=== PATIENT | male | born 1950 | race Asian ===

== ENCOUNTER 2017-05-21 14:03 | Observation (INO) | payer SELFPAY ==
[2017-05-21] MEDS ORDERED: ASPIRIN 81 MG CHEWABLE TABLETS PO ONE ×2 (14:23→16:11)
[2017-05-21] MEDS ORDERED: ASPIRIN 81 MG CHEWABLE TABLETS ONE ×2 (14:46→16:11)
[2017-05-21 15:13] LABS: HEMATOCRIT 33.1 % (35.4-49); HEMOGLOBIN 10.9 GM/dL (11.7-16.9); MCH 28.6 pg (25.7-33.7); MEAN CELL VOLUME 86.7 fl (80-96); MEAN PLT VOLUME 10.4 fl (7.5-11.1); PLATELET COUNT 82 K/MM3 (134-434); RBC 3.82 M/mm3 (4.00-5.60); RDW 15.9 % (11.9-15.9); WHITE BLOOD COUNT 3.4 K/mm3 (4.0-10.0)
[2017-05-21 15:43] LABS: INR 1.11 (0.82-1.09); PROTHROMBIN TIME (PATIENT) 12.5 SEC (9.98-11.88)
[2017-05-21 15:44] LABS: ALBUMIN 3.9 g/dl (3.4-5.0); ANION GAP 10 (8-16); BILIRUBIN,TOTAL 0.5 mg/dL (0.2-1.0); BLOOD UREA NITROGEN 75 mg/dL (7-18); CALCIUM 8.2 mg/dL (8.5-10.1); CHLORIDE 100 mmol/L (98-107); CO2 27 mmol/L (21-32); CREATININE 3.8 mg/dL (0.7-1.3); GLUCOSE,RANDOM 81 mg/dL (74-106); MAGNESIUM 2.5 mg/dL (1.8-2.4); POTASSIUM 3.7 mmol/L (3.5-5.1); SGOT/AST 52 U/L (15-37); SGPT/ALT 43 U/L (12-78); SODIUM 137 mmol/L (136-145); TOT PROT 8.3 g/dl (6.4-8.2)
[2017-05-21 15:46] LABS: ACTIVATED PTT 38.1 SECONDS (26.9-34.4)
[2017-05-21 15:47] LABS: ALK PHOS 87 U/L (45-117)
[2017-05-21] MEDS ORDERED: ASPIRIN 325 MG TABLET PO ONE (15:52)
--- NOTE | 2017-05-21 15:59 | PDOC ---
History of Present Illness <Jovany Mcfarland - Last Filed: 05/21/17 16:11> - History of Present Illness Initial Comments: 05/21/17 15:53 "The patient is a 67 year old male with a significant PMH of cardiac arrest x2 ( both in 12/2016) 2/2 GA s/p stent placement, CHF (on Lasix), HTN, diabetes, and hyperlipidemia who presents to the emergency department with multiple complaints including chest pain, shortness of breath, cough, and nausea beginning approximately 8 days ago. The patients daughter reports that the patient has had chest pain and shortness of breath intermittently since his MIs. He states it is worsened with exertion. Denies leg swelling. Denies pleuritic chest pain. Denies F/C. Reports significant dyspnea on exertion but no orthopnea. Pt recently arrived to [place]. He was previously in [facility], where he suffered a cardiac arrest x2 in 12/2016 and was admitted to the ICU for 2 weeks. Pt was discharged mid-december, and he has since had some follow up with doctors in [place] but does not follow with anyone here. The patient denies headache and dizziness. Denies fever, chills, diarrhea and constipation. Denies dysuria, frequency, urgency and hematuria. Allergies: NKA Past surgical history: Stent placement. Social history: No reported cigarette, alcohol, or drug use. PCP: From [place]. " <Emerson Jewell - Last Filed: 05/22/17 19:15> - General Chief Complaint: Shortness of Breath Stated Complaint: Shortness of Breath Time Seen by Provider: 05/21/17 14:37 Past History <Jovany Mcfarland - Last Filed: 05/21/17 16:11> - Past Medical History Cardiac Disorders: Yes CVA: No COPD: No Diabetes: Yes (Type II) HTN: Yes Hypercholesterolemia: Yes - Surgical History Cardiac Surgery: Yes - Suicide/Smoking/Psychosocial Hx Smoking History: Never smoked Have you smoked in the past 12 months: No Information on smoking cessation initiated: No Hx Alcohol Use: No Drug/Substance Use Hx: No Substance Use Type: None <Emerson Jewell - Last Filed: 05/22/17 19:15> - Past Medical History Allergies/Adverse Reactions: Allergies Allergy/AdvReac Type Severity Reaction Status Date / Time No Known Allergies Allergy Verified 05/21/17 14:23 Home Medications: Ambulatory Orders Furosemide [Lasix] 60 mg PO DAILY 05/21/17 Hydralazine HCl 50 mg PO TID 05/21/17 Insulin (Novolog 70/30) [Novolog Mix 70/30 Flexpen -] 20 units SQ BID 05/21/17 Aspirin 75 mg PO DAILY 05/22/17 Bisoprolol Fumarate 5 mg PO DAILY 05/22/17 Doxazosin Mesylate [Cardura -] 2 mg PO HS 05/22/17 Isosorbide Mononitrate [Isosorbide Mononitrate ER] 120 mg PO DAILY 05/22/17 Rosuvastatin Calcium [Crestor] 10 mg PO HS 05/22/17 Review of Systems - Review of Systems Comments:: 05/21/17 15:59 "GENERAL/CONSTITUTIONAL: (+) Generalized weakness. No fever or chills. HEAD, EYES, EARS, NOSE AND THROAT: No change in vision. No ear pain or discharge. No sore throat. CARDIOVASCULAR: (+) Chest pain. (+) Shortness of breath. RESPIRATORY: (+) Cough. No wheezing or hemoptysis. GASTROINTESTINAL: (+) nausea. No diarrhea or constipation. GENITOURINARY: No dysuria, frequency, or change in urination. MUSCULOSKELETAL: No joint or muscle swelling or pain. No neck or back pain. SKIN: No rash NEUROLOGIC: No headache, vertigo, loss of consciousness, or change in strength/ sensation. ENDOCRINE: No increased thirst. No abnormal weight change. HEMATOLOGIC/LYMPHATIC: No anemia, easy bleeding, or history of blood clots. ALLERGIC/IMMUNOLOGIC: No hives or skin allergy. " <Emerson Jewell - Last Filed: 05/22/17 19:15> *Physical Exam - Vital Signs Last Vital Signs Temp Pulse Resp BP Pulse Ox 99.1 F 45 L 28 H 106/45 98 05/21/17 14:18 05/21/17 14:41 05/21/17 14:18 05/21/17 14:18 05/21/17 14:41 <Jovany Mcfarland - Last Filed: 05/21/17 16:11> - Vital Signs Last Vital Signs Temp Pulse Resp BP Pulse Ox 99.1 F 45 L 28 H 106/45 98 05/21/17 14:18 05/21/17 14:41 05/21/17 14:18 02/02/18 14:18 05/21/17 14:41 - Physical Exam Comments: 05/21/17 15:59 "GENERAL: Awake, alert, and fully oriented, in no acute distress HEAD: No signs of trauma EYES: PERRLA, EOMI, sclera anicteric, conjunctiva clear ENT: Auricles normal inspection, hearing grossly normal, nares patent, oropharynx clear without exudates. Moist mucosa NECK: Nontender, no stepoffs, Normal ROM, supple, no lymphadenopathy, JVD, or masses LUNGS: Breath sounds equal, clear to auscultation bilaterally. No wheezes, and no crackles HEART: Regular rate and rhythm, normal S1 and S2, no murmurs, rubs or gallops ABDOMEN: Soft, nontender, normoactive bowel sounds. No guarding, no rebound. No masses EXTREMITIES: Normal range of motion, no edema. No clubbing or cyanosis. No cords, erythema, or tenderness NEUROLOGICAL: Cranial nerves II through XII intact. 5/5 strength and sensation in all extremities, Normal speech, normal gait SKIN: Warm, Dry, normal turgor, no rashes or lesions noted. " <Ou,Emerson - Last Filed: 05/22/17 19:15> Heart Score/ECG Review - History History: Highly suspicious - Electrocardiogram EKG: Non specific repolarization disturbance - Age Age: >/= 65 - Risk Factors Risk Factors Heart Score: Yes Hx Hypercholesterolemia, Yes Hx Hypertension, Yes Hx Diabetes Based on the list above the patient has:: >/=3 risk factors or Hx atherosclerotic disease - Troponin Troponin: 1-3x normal limit - Score Heart Score - Total: 8 - ECG Impressions Comment:: 05/21/17 16:03 NSR, no JANNY/STDs, Q waves in V1-V4, no TWIs, intervals wnl <Ou,Emerson - Last Filed: 05/22/17 19:15> ED Treatment Course - LABORATORY CBC & Chemistry Diagram: 05/21/17 15:00 05/21/17 15:00 - ADDITIONAL ORDERS Additional order review: Laboratory Results 05/21/17 05/21/17 05/21/17 15:00 15:00 15:00 PT with INR 12.50 H INR 1.11 PTT (Actin FS) 38.1 H Sodium 137 Potassium 3.7 Chloride 100 Carbon Dioxide 27 Anion Gap 10 BUN 75 H Creatinine 3.8 H Creat Clearance w eGFR 15.92 Random Glucose 81 Calcium 8.2 L Magnesium 2.5 H Total Bilirubin 0.5 AST 52 H ALT 43 Alkaline Phosphatase 87 Creatine Kinase 491 H Creatine Kinase Index 0.2 CK-MB (CK-2) < 1.000 Troponin I 0.27 H B-Natriuretic Peptide 9823.87 H Total Protein 8.3 H Albumin 3.9 05/21/17 15:00 PT with INR Cancelled INR Cancelled PTT (Actin FS) Sodium Potassium Chloride Carbon Dioxide Anion Gap BUN Creatinine Creat Clearance w eGFR Random Glucose Calcium Magnesium Total Bilirubin AST ALT Alkaline Phosphatase Creatine Kinase Creatine Kinase Index CK-MB (CK-2) Troponin I B-Natriuretic Peptide Total Protein Albumin 05/21/17 15:00 RBC 3.82 L MCV 86.7 MCHC 33.0 RDW 15.9 MPV 10.4 Neutrophils % No Result Required. Lymphocytes % No Result Required. - Medications Given in the ED: ED Medications Discontinued Medications Generic Name Dose Route Start Last Admin Trade Name Caliq PRN Reason Stop Dose Admin Aspirin 162 mg 05/21/17 14:23 05/21/17 14:47 Asa - PO 05/21/17 14:24 162 mg ONCE ONE Administration <Jovany Mcfarland - Last Filed: 05/21/17 16:11> - LABORATORY CBC & Chemistry Diagram: 05/22/17 06:45 05/22/17 06:45 - ADDITIONAL ORDERS Additional order review: Laboratory Results 05/21/17 05/21/17 05/21/17 15:00 15:00 15:00 PT with INR 12.50 H INR 1.11 PTT (Actin FS) 38.1 H Sodium 137 Potassium 3.7 Chloride 100 Carbon Dioxide 27 Anion Gap 10 BUN 75 H Creatinine 3.8 H Creat Clearance w eGFR 15.92 Random Glucose 81 Calcium 8.2 L Magnesium 2.5 H Total Bilirubin 0.5 AST 52 H ALT 43 Alkaline Phosphatase 87 Creatine Kinase 491 H Troponin I 0.27 H B-Natriuretic Peptide 9823.87 H Total Protein 8.3 H Albumin 3.9 05/21/17 15:00 PT with INR Cancelled INR Cancelled PTT (Actin FS) Sodium Potassium Chloride Carbon Dioxide Anion Gap BUN Creatinine Creat Clearance w eGFR Random Glucose Calcium Magnesium Total Bilirubin AST ALT Alkaline Phosphatase Creatine Kinase Troponin I B-Natriuretic Peptide Total Protein Albumin 05/21/17 15:00 RBC 3.82 L MCV 86.7 MCHC 33.0 RDW 15.9 MPV 10.4 Neutrophils % No Result Required. Lymphocytes % No Result Required. - RADIOLOGY Radiology Studies Ordered: Category Date Time Status CHEST X-RAY PORTABLE* [RAD] Stat Radiology 05/21/17 15:27 Taken - Medications Given in the ED: ED Medications Discontinued Medications Generic Name Dose Route Start Last Admin Trade Name Dakotah PRN Reason Stop Dose Admin Aspirin 162 mg 05/21/17 14:23 05/21/17 14:47 Asa - PO 05/21/17 14:24 162 mg ONCE ONE Administration <Emerson Jewell - Last Filed: 05/22/17 19:15> Medical Decision Making - Medical Decision Making 05/21/17 16:09 67 M with GA x 2, cardiac arrest, presenting with CP and SOB x 8 days. Concerning for ACS. Pt with no clinical signs of DVT/PE. - Labs, trop,BNP - CXR - Aspirin - Admit 05/21/17 16:33 Pt with positive trop 0.27 Pt also with Cr >3, unclear what baseline is. Page sent out to Dr. Farrell, financial director industrial relations specialist. Will admit for tele monitoring, trending of trops, cardiology consultation. Case discussed in detail with admitting physician including history, physical exam and ancillary studies. Admitting physician has assumed care for the patient and will follow all pending diagnostics and complete the evaluation and treatment. <Emerson Jewell - Last Filed: 05/22/17 19:15> *DC/Admit/Observation/Transfer - Attestations Scribe Attestion: 05/21/17 16:12 Documentation prepared by Jovany Mcfarland, acting as medical planner for Emerson Jewell MD. <Jovany Mcfarland - Last Filed: 05/21/17 16:11> - Discharge Dispostion Admit: Yes - Attestations Physician Attestion: 05/21/17 17:33 I, Dr. Emerson Jewell MD, attest that this document has been prepared under my direction and personally reviewed by me in its entirety. I further attest, that it accurately reflects all work, treatment, procedures and medical decision -making performed by me. <Emerson Jewell - Last Filed: 05/22/17 19:15> Diagnosis at time of Disposition: Chest pain Qualifiers: Chest pain type: chest pain due to myocardial ischemia Ischemic chest pain type : unstable angina pectoris Qualified Code(s): I20.0 - Unstable angina
[2017-05-21 16:39] LABS: PLATELET ESTIMATE DECREASED
[2017-05-21] MEDS ORDERED: HEPARIN NA (PORCINE) 5,000 UNITS/ML 1ML VIAL IVPUSH PRN ×2 (17:22)
[2017-05-21] MEDS ORDERED: HEPARIN INFUSION - 25,000 UNITS/500 ML INFUS.BAG IVPB ONE (18:15)
[2017-05-21] MEDS: HEPARIN - 25,000 UNIT in SODIUM CHLORIDE 495 ML IV SCH (18:30)
--- NOTE | 2017-05-21 18:39 | HP ---
CHIEF COMPLAINT: chest pain PCP: none HISTORY OF PRESENT ILLNESS: This is a 67 year old male with PMHx of DM, HTN, hyperlipidemia, TN 12/2016 with cardiac stenting, CKD (baseline Cr ~3), who presented to the ED with chest pain. The patient reports that he flew form [place] on 05/13 and developed left sided chest pain radiating to his b/l jaw on 05/16. The patient reports the pain is "pinching". He denies palpitations, dizziness, headache, orthopnea, urinary symptoms. He reports about 15-30 minutes after he eats he vomits. He states the vomit is non-bloody. He states it doesn't happen all the time, but it has been going on since 11/2016. He states he saw his provider in [place] who told him to stay away from spicy foods ER course was notable for: (1) Temp 99.1, pulse 47, BP 106/45, resp 28, o2 98% on RA (2) WBC 3.4, Hgb 10.9, platelets 82, Cr 3.8 (3) Trop 0.27, bnp 9823 Recent Travel: From [facility] PAST MEDICAL HISTORY: as above PAST SURGICAL HISTORY: as above Social History: Smoking: denies Alcohol: denies Drugs: denies Family History: Allergies No Known Allergies Allergy (Verified 05/21/17 14:23) HOME MEDICATIONS: Home Medications Medication Instructions Recorded Furosemide [Lasix] 60 mg PO DAILY 05/21/17 Hydralazine HCl 25 mg PO TID 05/21/17 Insulin (Novolog 70/30) [Novolog 20 units SQ BID 05/21/17 Mix 70/30 Flexpen -] REVIEW OF SYSTEMS CONSTITUTIONAL: Absent: fever, chills, diaphoresis, generalized weakness, malaise, loss of appetite, weight change HEENT: Absent: rhinorrhea, nasal congestion, throat pain, throat swelling, difficulty swallowing, mouth swelling, ear pain, eye pain, visual changes CARDIOVASCULAR: Left sided chest pain that began on Wednesday, radiating to the b/ l jaw. Absent: syncope, palpitations, irregular heart rate, lightheadedness, peripheral edema RESPIRATORY: Absent: cough, shortness of breath, dyspnea with exertion, orthopnea, wheezing, stridor, hemoptysis GASTROINTESTINAL:Vomiting after eating since november. Absent: abdominal pain, abdominal distension, diarrhea, constipation, melena, hematochezia GENITOURINARY: Absent: dysuria, frequency, urgency, hesitancy, hematuria, flank pain, genital pain MUSCULOSKELETAL: Absent: myalgia, arthralgia, joint swelling, back pain, neck pain SKIN: Absent: rash, itching, pallor HEMATOLOGIC/IMMUNOLOGIC: Absent: easy bleeding, easy bruising, lymphadenopathy, frequent infections ENDOCRINE:Absent: unexplained weight gain, unexplained weight loss, heat intolerance, cold intolerance NEUROLOGIC: Absent: headache, focal weakness or paresthesias, dizziness, unsteady gait, seizure, mental status changes, bladder or bowel incontinence PSYCHIATRIC: Absent: anxiety, depression, suicidal or homicidal ideation, hallucinations. PHYSICAL EXAMINATION Vital Signs - 24 hr 05/21/17 05/21/17 05/21/17 14:18 14:41 16:16 Temperature 99.1 F Pulse Rate 47 L 45 L Pulse Rate [ 38 L Apical] Respiratory 28 H 22 Rate Blood Pressure 106/45 Blood Pressure 106/78 [Left Arm] O2 Sat by Pulse 98 98 98 Oximetry (%) GENERAL: Thin, cachectic. Awake, alert, and fully oriented, in no acute distress. HEAD: Normal with no signs of trauma. EYES: Pupils equal, round and reactive to light, extraocular movements intact, sclera anicteric, conjunctiva clear. No lid lag. EARS, NOSE, THROAT: Ears normal, nares patent, oropharynx clear without exudates. Moist mucous membranes. NECK: Normal range of motion, supple without lymphadenopathy LUNGS: Breath sounds equal, clear to auscultation bilaterally. No wheezes, and no crackles. HEART: Bradycardia, normal S1 and S2 ABDOMEN: Soft, nontender, not distended, normoactive bowel sounds, no guarding, no rebound, no masses. No hepatomegaly or splenomegaly. MUSCULOSKELETAL: Normal range of motion at all joints. No bony deformities or tenderness. No CVA tenderness. UPPER EXTREMITIES: 2+ pulses, warm, well-perfused. No cyanosis. No clubbing. No peripheral edema. LOWER EXTREMITIES: Thin. 2+ pulses, warm, well-perfused. No calf tenderness. No peripheral edema. NEUROLOGICAL: Cranial nerves II-XII intact. Normal speech. Normal gait. PSYCHIATRIC: Cooperative. Good eye contact. Appropriate mood and affect. SKIN: Warm, dry, normal turgor, no rashes or lesions noted, normal capillary refill. Laboratory Results - last 24 hr 05/21/17 05/21/17 05/21/17 15:00 15:00 15:00 WBC 3.4 L RBC 3.82 L Hgb 10.9 L Hct 33.1 L MCV 86.7 MCH 28.6 MCHC 33.0 RDW 15.9 Plt Count 82 L MPV 10.4 Total Counted 100 Neutrophils % No Result Required. Neutrophils % (Manual) 41.0 L Band Neutrophils % 2.0 Lymphocytes % No Result Required. Lymphocytes % (Manual) 40.0 Monocytes % (Manual) 13 H Eosinophils % (Manual) 2.0 Platelet Estimate Decreased Platelet Comment No clumping noted PT with INR Cancelled INR Cancelled PTT (Actin FS) Sodium 137 Potassium 3.7 Chloride 100 Carbon Dioxide 27 Anion Gap 10 BUN 75 H Creatinine 3.8 H Creat Clearance w eGFR 15.92 Random Glucose 81 Calcium 8.2 L Magnesium 2.5 H Total Bilirubin 0.5 AST 52 H ALT 43 Alkaline Phosphatase 87 Creatine Kinase 491 H Creatine Kinase Index 0.2 CK-MB (CK-2) < 1.000 Troponin I 0.27 H B-Natriuretic Peptide Total Protein 8.3 H Albumin 3.9 05/21/17 05/21/17 15:00 15:00 WBC RBC Hgb Hct MCV MCH MCHC RDW Plt Count MPV Total Counted Neutrophils % Neutrophils % (Manual) Band Neutrophils % Lymphocytes % Lymphocytes % (Manual) Monocytes % (Manual) Eosinophils % (Manual) Platelet Estimate Platelet Comment PT with INR 12.50 H INR 1.11 PTT (Actin FS) 38.1 H Sodium Potassium Chloride Carbon Dioxide Anion Gap BUN Creatinine Creat Clearance w eGFR Random Glucose Calcium Magnesium Total Bilirubin AST ALT Alkaline Phosphatase Creatine Kinase Creatine Kinase Index CK-MB (CK-2) Troponin I B-Natriuretic Peptide 9823.87 H Total Protein Albumin Assessment: This is a 67 year old male with PMHx of DM, HTN, hyperlipidemia, TN 12/2016 with cardiac stenting, CKD (baseline Cr ~3), who presented to the ED with chest pain Plan: 1) NSTEMI - Hx of TN 12/2016 with stenting - Unknown baseline labs - Patient does not have stent cards with him - ASA 81mg daily - Plavix 75mg daily - Heparin gtt - Will hold bblocker give bradycardia - F/u ECHO - Discussed with cardiology 2) CKD - Reports baseline Cr ~3 - F/u kidney/bladder ultrasound - F/u urine electrolytes - F/u urology consult 3) Elevated BNP - F/u chest x-ray - Patient on Lasix 60mg po daily at home? - Lungs CTA bilaterally, no lower extremity edema - Will hold Lasix for now given kidney function 4) HTN - Med list in review, unknown medications as they are [place] medications - Monitor BP closely 5) DM - BGM ACHS - Modified ISS ACHS given the patient states he does not eat a lot 6) Vomiting - The patient reports vomiting 15-20 minutes after meals since 11/2016 - F/u abdominal ultrasound - May require further imaging 7) F/E/N: - Diabetic diet - Monitor electrolytes 8) Prophylaxis: - Heparin gtt 9) Dispo: - Once condition improves CODE STATUS: FULL CODE Visit type - Emergency Visit Emergency Visit: Yes ED Registration Date: 05/21/17 Care time: The patient presented to the Emergency Department on the above date and was hospitalized for further evaluation of their emergent condition. - New Patient This patient is new to me today: Yes Date on this admission: 05/21/17 - Critical Care Critical Care patient: No
[2017-05-21] MEDS: ROSUVASTATIN CA 10 MG TABLET (FP) PO SCH (21:05)
[2017-05-21] MEDS: INSULIN SLIDING SCALE (NOVOLOG) 1 VIAL SQ SCH (21:05)
[2017-05-22 00:56] LABS: URINE APPEARANCE CLEAR; URINE BILIRUBIN NEGATIVE (NEGATIVE); URINE BLOOD NEGATIVE (NEGATIVE); URINE COLOR LTYELLOW; URINE GLUCOSE (UA) NEGATIVE (NEGATIVE); URINE KETONE NEGATIVE (NEGATIVE); URINE LEUK ESTERASE NEGATIVE (NEGATIVE); URINE NITRITE NEGATIVE (NEGATIVE); URINE UROBILINOGEN NEGATIVE mg/dL (0.2-1.0)
[2017-05-22 01:01] LABS: URINE PROTEIN 2+ (NEGATIVE)
[2017-05-22] MEDS: ACETAMINOPHEN 325 MG TABLET (FP) PO PRN (01:56)
[2017-05-22] MEDS: INSULIN SLIDING SCALE (NOVOLOG) 1 VIAL SQ SCH ×4 (06:00→22:47)
[2017-05-22 08:18] LABS: HEMATOCRIT 32.2 % (35.4-49); HEMOGLOBIN 10.3 GM/dL (11.7-16.9); MCH 27.8 pg (25.7-33.7); MCHC 31.9 g/dl (32.0-35.9); MEAN CELL VOLUME 87.1 fl (80-96); MEAN PLT VOLUME 10.1 fl (7.5-11.1); PLATELET COUNT 73 K/MM3 (134-434); RDW 15.5 % (11.9-15.9); WHITE BLOOD COUNT 3.4 K/mm3 (4.0-10.0)
[2017-05-22] MEDS: ASPIRIN COATED 81 MG TABLET.EC PO SCH (09:51)
[2017-05-22] MEDS: CLOPIDOGREL BISULFATE 75 MG TABLET (FP) PO SCH (09:51)
[2017-05-22] MEDS ORDERED: FLU VACCINE QUAD 60 MCG/0.5 ML (MDV 17-18) IM ONE (10:00)
[2017-05-22] MEDS ORDERED: PNEUMOC 13-VAL CONJ-DIP CRM/PF 0.5 ML DISP.SYRIN IM ONE (10:00)
[2017-05-22 10:18] LABS: ALBUMIN 3.6 g/dl (3.4-5.0); ANION GAP 10 (8-16); BILIRUBIN,TOTAL 0.6 mg/dL (0.2-1.0); BLOOD UREA NITROGEN 71 mg/dL (7-18); CALCIUM 7.8 mg/dL (8.5-10.1); CHLORIDE 108 mmol/L (98-107); CO2 24 mmol/L (21-32); CREATININE 3.7 mg/dL (0.7-1.3); GLUCOSE,RANDOM 106 mg/dL (74-106); MAGNESIUM 2.6 mg/dL (1.8-2.4); PHOSPHOROUS 4.6 mg/dL (2.5-4.9); POTASSIUM 3.7 mmol/L (3.5-5.1); SGOT/AST 47 U/L (15-37); SGPT/ALT 41 U/L (12-78); SODIUM 142 mmol/L (136-145); TOT PROT 7.4 g/dl (6.4-8.2)
[2017-05-22 10:24] LABS: ALK PHOS 87 U/L (45-117)
[2017-05-22 10:27] VITALS: BMI 22.1
--- NOTE | 2017-05-22 10:27 | CON.NEP ---
Consult Consult Specialty:: Nephrology Referred by:: JAYDE Chi Reason for Consultation:: KELLI on CKD - History of Present Illness Chief Complaint: Chest pain History of Present Illness: This is a 67 year old gentleman with PMhx of CKD Stage 4 (baseline Cr ~3), CAD / p AR, Hypertension, DM on insulin who presented with complaints of chest pain and found to have a Cr of 3.8. Pt recent traveled from [place]. Reports that his Cr was last at 3 and at its peak it was 3.2. Pt denies any NSAID use. No recent contrast exposure. Home med list reviewed and pt does not appear to be on LM/ARB. Denie any symptoms of retention. No recent Abx use. No flank pain, dysuria, hematuria, N/V. CP is now resolved. - History Source History Provided By: Patient Limitations to Obtaining History: No Limitations - Alcohol/Substance Use Hx Alcohol Use: No - Smoking History Smoking history: Never smoked Have you smoked in the past 12 months: No Home Medications - Allergies Allergies/Adverse Reactions: Allergies Allergy/AdvReac Type Severity Reaction Status Date / Time No Known Allergies Allergy Verified 05/21/17 14:23 - Home Medications Home Medications: Ambulatory Orders Furosemide [Lasix] 60 mg PO DAILY 05/21/17 Hydralazine HCl 50 mg PO TID 05/21/17 Insulin (Novolog 70/30) [Novolog Mix 70/30 Flexpen -] 20 units SQ BID 05/21/17 Aspirin 75 mg PO DAILY 05/22/17 Bisoprolol Fumarate 5 mg PO DAILY 05/22/17 Doxazosin Mesylate [Cardura -] 2 mg PO HS 05/22/17 Isosorbide Mononitrate [Isosorbide Mononitrate ER] 120 mg PO DAILY 05/22/17 Rosuvastatin Calcium [Crestor] 10 mg PO HS 05/22/17 Family Disease History - Family Disease History Family History: Unremarkable Review of Systems - Review of Systems Constitutional: reports: No Symptoms Eyes: reports: No Symptoms HENT: reports: No Symptoms Neck: reports: No Symptoms Cardiovascular: reports: No Symptoms Respiratory: reports: No Symptoms Gastrointestinal: reports: No Symptoms Genitourinary: reports: No Symptoms Integumentary: reports: No Symptoms Neurological: reports: No Symptoms Nephrology Consult - Height Height: 5 ft 8 in - Weight Weight: 66.224 kg - BMI Body Mass Index (BMI): 22.1 - Lab Results CBC,BMP: CBC, BMP 05/22/17 06:45 Anion Gap: Anion Gap Anion Gap 10 (8-16) 05/21/17 15:00 - Imaging Ultrasound: Report Reviewed - Physical Examination Vital Signs: Vital Signs Temperature 98.9 F 05/22/17 05:47 Pulse Rate 47 L 05/22/17 05:47 Respiratory Rate 20 05/22/17 05:47 Blood Pressure 133/49 05/22/17 05:47 O2 Sat by Pulse Oximetry (%) 99 05/22/17 05:27 Constitutional: Yes: No Distress, Calm Eyes: Yes: Conjunctiva Clear HENT: Yes: Atraumatic, Normocephalic Neck: Yes: Supple Cardiovascular: Yes: Regular Rate and Rhythm, S1, S2. No: JVD, Murmur, Rub Respiratory: Yes: Regular, CTA Bilaterally. No: Rales, Rhonchi, SOB, Wheezes Gastrointestinal: Yes: Normal Bowel Sounds, Soft. No: Tenderness Renal/: No: Bladder Distention, CVA Tenderness - Left, CVA Tenderness - Right , Thrasher Present Edema: No Neurological: Yes: Alert, Oriented Assessment/Plan 67 year old gentleman with PMhx of CKD Stage 4 (baseline Cr ~3), CAD /p AR, Hypertension, DM on insulin who presented with complaints of chest pain and found to have a Cr of 3.8 #KELLI etiology of decreae in renal function unclear at the present time UA showed 2+ protein but no blood pt appers to to be evolemic pt with high BUN/Cr ratio and thus could be intravasclar volume depletion Check urine studies US showed smal kidneys w/o obstruction would hold diuretics for now Trend BUN/Cr over next 24 hours if no change noted can attempt volume expansion with IVF dose all meds for CrCl less then 15 no acute indication for UX ARCHITECT #CKD etiology of CKD likely multifactorial from ischemic renal disease +/- diabetic nephropathy check UCPR US results noted #Chest pain r/o ACS trend cardiac enzymes cardiology evaluation check lipid profile on ASA #DM Check Hgb A1C thank you will follow Isaiah Diaz DO Current Medications Acetaminophen (Tylenol -) 650 mg PO Q6H PRN PRN Reason: PAIN Last Admin: 05/22/17 01:56 Dose: 650 mg Aspirin (Ecotrin -) 81 mg PO DAILY [facility] Last Admin: 05/22/17 09:51 Dose: 81 mg Clopidogrel Bisulfate (Plavix -) 75 mg PO DAILY [facility] Last Admin: 05/22/17 09:51 Dose: 75 mg Heparin Sodium (Porcine) (Heparin -) 1,000 unit IVPUSH PRN PRN PRN Reason: Heparin Heparin Sodium (Porcine) (Heparin -) 5,000 unit IVPUSH PRN PRN PRN Reason: Heparin Heparin Sodium (Porcine) 25, (000 unit/ Sodium Chloride) 500 mls @ 20 mls/hr IV TITR CARMEN; 1,000 UNIT/HR PRN Reason: Protocol Last Titration: 05/22/17 02:00 Dose: 900 unit/hr, 18 mls/hr Insulin Aspart (Novolog Vial Sliding Scale -) 1 vial SQ ACHS CARMEN PRN Reason: Protocol Last Admin: 05/22/17 06:00 Dose: Not Given Rosuvastatin Calcium (Crestor -) 10 mg PO HS [facility] Last Admin: 05/21/17 21:05 Dose: 10 mg
[2017-05-22 10:59] LABS: CHOLESTEROL 110 mg/dL (50-200); HDL CHOLESTEROL 27 mg/dL (40-60); LDL CHOLESTEROL (ONLY SJRH) 71 mg/dL (5-100); TRIGLYCERIDES 102 mg/dL (35-160)
--- NOTE | 2017-05-22 11:27 | PN ---
Progress Note (short form) - Note Progress Note: Subjective: The patient was seen and examined at the bedside, he has no complaints at this time. He denies any chest pain Current Medications Generic Name Dose Route Start Last Admin Trade Name Dakotah PRN Reason Stop Dose Admin Acetaminophen 650 mg 05/22/17 01:08 05/22/17 01:56 Tylenol - PO 650 mg Q6H PRN Administration PAIN Aspirin 81 mg 05/22/17 10:00 05/22/17 09:51 Ecotrin - PO 81 mg DAILY [facility] Administration Clopidogrel Bisulfate 75 mg 05/22/17 10:00 05/22/17 09:51 Plavix - PO 75 mg DAILY [facility] Administration Heparin Sodium (Porcine) 1,000 unit 05/21/17 17:22 Heparin - IVPUSH PRN PRN Heparin Heparin Sodium (Porcine) 5,000 unit 05/21/17 17:22 Heparin - IVPUSH PRN PRN Heparin Heparin Sodium (Porcine) 25, 500 mls @ 20 mls/hr 05/21/17 17:30 05/22/17 02: 00 000 unit/ Sodium Chloride IV 900 unit/hr TITR CARMEN 18 mls/hr Protocol Titration 1,000 UNIT/HR Insulin Aspart 1 vial 05/21/17 22:00 05/22/17 06:00 Novolog Vial Sliding Scale - SQ Not Given ACHS [facility] Protocol Rosuvastatin Calcium 10 mg 05/21/17 22:00 05/21/17 21:05 Crestor - PO 10 mg HS [facility] Administration Objective: Vital Signs Period Temp Pulse Resp BP Sys/Agosto Pulse Ox Last 24 Hr 98 F-99.1 F 38-60 20-28 106-185/45-90 98-99 Physical Exam: General: NAD, thin, A&Ox3 Lungs: CTA bilaterally Heart: RRR, S1S2 Abd: Soft, non-tender, non-distended. Normoactive bowel sounds Ext: Warm, well-perfused. 2+ DP/PT bilaterally. No edema CBCD WBC 3.4 K/mm3 (4.0-10.0) L 05/22/17 06:45 RBC 3.70 M/mm3 (4.00-5.60) L 05/22/17 06:45 Hgb 10.3 GM/dL (11.7-16.9) L 05/22/17 06:45 Hct 32.2 % (35.4-49) L 05/22/17 06:45 MCV 87.1 fl (80-96) 05/22/17 06:45 MCHC 31.9 g/dl (32.0-35.9) L 05/22/17 06:45 RDW 15.5 % (11.9-15.9) 05/22/17 06:45 Plt Count 73 K/MM3 (134-434) L 05/22/17 06:45 MPV 10.1 fl (7.5-11.1) 05/22/17 06:45 CMP Sodium 142 mmol/L (136-145) 05/22/17 06:45 Potassium 3.7 mmol/L (3.5-5.1) 05/22/17 06:45 Chloride 108 mmol/L (98-107) H 05/22/17 06:45 Carbon Dioxide 24 mmol/L (21-32) 05/22/17 06:45 Anion Gap 10 (8-16) 05/22/17 06:45 BUN 71 mg/dL (7-18) H 05/22/17 06:45 Creatinine 3.7 mg/dL (0.7-1.3) H 05/22/17 06:45 Creat Clearance w eGFR 16.42 (>60) 05/22/17 06:45 Random Glucose 106 mg/dL (74-106) D 05/22/17 06:45 Calcium 7.8 mg/dL (8.5-10.1) L 05/22/17 06:45 Total Bilirubin 0.6 mg/dL (0.2-1.0) 05/22/17 06:45 AST 47 U/L (15-37) H 05/22/17 06:45 ALT 41 U/L (12-78) 05/22/17 06:45 Alkaline Phosphatase 87 U/L (45-117) 05/22/17 06:45 Total Protein 7.4 g/dl (6.4-8.2) 05/22/17 06:45 Albumin 3.6 g/dl (3.4-5.0) 05/22/17 06:45 CARDIAC ENZYMES Creatine Kinase 458 IU/L (39-308) H 05/22/17 06:45 Troponin I 0.31 ng/ml (0.00-0.05) H 05/22/17 06:45 Assessment: This is a 67 year old male with PMHx of DM, HTN, hyperlipidemia, [place] 12/2016 with cardiac stenting, CKD (baseline Cr ~3), who presented to the ED with chest pain Plan: 1) NSTEMI - Hx of [place] 12/2016 with stenting - Unknown baseline labs - Patient does not have stent cards with him - ASA 81mg daily - Plavix 75mg daily - Heparin gtt - Will hold bblocker give bradycardia - F/u ECHO - Discussed with cardiology 2) KELLI, CKD - Reports baseline Cr ~3 - Kidney/bladder ultrasound with unremarkable kidneys - F/u urine electrolytes - Appreciate nephrology consult 3) Elevated BNP - F/u chest x-ray - Patient on Lasix 60mg po daily at home? - Lungs CTA bilaterally, no lower extremity edema - Will hold Lasix for now given kidney function 4) HTN - Hold bblocker 2/2 bradycardia - No LM/arb as it is unknown if KELLI vs. CKD - F/u cardiology consult for further recommendations 5) DM - BGM ACHS - Modified ISS ACHS given the patient states he does not eat a lot 6) Vomiting - The patient reports vomiting 15-20 minutes after meals since 11/2016 - Abdominal ultrasound with fatty liver vs. hepatocellular disease. Borderline thickening of the gallbladder wall without evidence of acute cholecystitis - May require further imaging 7) F/E/N: - Diabetic diet - Monitor electrolytes 8) Prophylaxis: - Heparin gtt 9) Dispo: - Once condition improves CODE STATUS: FULL CODE Visit type - Emergency Visit Emergency Visit: Yes ED Registration Date: 05/21/17 Care time: The patient presented to the Emergency Department on the above date and was hospitalized for further evaluation of their emergent condition. - New Patient This patient is new to me today: No - Critical Care Critical Care patient: No
--- NOTE | 2017-05-22 13:03 | CON.CARD ---
Consult Consult Specialty:: Cardiology Referred by:: Ann Reason for Consultation:: nstemi - History of Present Illness Chief Complaint: chest pain History of Present Illness: He is a 67 year old male with a history of DM, HTN, hyperlipidemia, [place] 12/2016 with cardiac stents to unknown vessels, CKD (baseline Cr ~3), who presented to the ED with chest pain. The patient reports that he flew form [place] on 05/13 and developed left sided chest pain radiating to his b/l jaw on 05/16. The patient reports the pain is "pinching" associated with SOB. No orthopnea, pnd or edema. No dizziness or syncope. Noted with elevated troponin, bnp and creat 3.8. Tele with episodes of nocturnal severe bradycardia and pauses. BB held. - History Source History Provided By: Patient, Medical Record - Alcohol/Substance Use Hx Alcohol Use: No - Smoking History Smoking history: Never smoked Have you smoked in the past 12 months: No Home Medications - Allergies Allergies/Adverse Reactions: Allergies Allergy/AdvReac Type Severity Reaction Status Date / Time No Known Allergies Allergy Verified 05/21/17 14:23 - Home Medications Home Medications: Ambulatory Orders Furosemide [Lasix] 60 mg PO DAILY 05/21/17 Hydralazine HCl 50 mg PO TID 05/21/17 Insulin (Novolog 70/30) [Novolog Mix 70/30 Flexpen -] 20 units SQ BID 05/21/17 Aspirin 75 mg PO DAILY 05/22/17 Bisoprolol Fumarate 5 mg PO DAILY 05/22/17 Doxazosin Mesylate [Cardura -] 2 mg PO HS 05/22/17 Isosorbide Mononitrate [Isosorbide Mononitrate ER] 120 mg PO DAILY 05/22/17 Rosuvastatin Calcium [Crestor] 10 mg PO HS 05/22/17 - Risk Factors Known Risk Factors: Yes: Diabetes Mellitus, Hypercholesterolemia, Prior [place] /[place] Stroke Vital Signs: Vital Signs Temperature 98.0 F 05/22/17 10:00 Pulse Rate 48 L 05/22/17 10:00 Respiratory Rate 20 05/22/17 10:00 Blood Pressure 138/53 05/22/17 10:00 O2 Sat by Pulse Oximetry (%) 99 05/22/17 05:27 Constitutional: Yes: No Distress Eyes: Yes: Conjunctiva Clear, EOM Intact HENT: Yes: Atraumatic, Normocephalic Neck: Yes: Supple, Trachea Midline Respiratory: Yes: CTA Bilaterally Gastrointestinal: Yes: Normal Bowel Sounds, Soft Cardiovascular: Yes: Regular Rate and Rhythm JVD: No Carotid Bruit: No PMI: Non-Displaced Heart Sounds: Yes: S1 Extremities: Yes: WNL Edema: No Peripheral Pulses WNL: Yes - Other Data Labs, Other Data: CBC, BMP 05/22/17 06:45 05/22/17 06:45 INR, PTT INR 1.11 (0.82-1.09) 05/21/17 15:00 Troponin, BNP 05/21/17 05/21/17 05/21/17 15:00 15:00 18:18 Troponin I 0.27 H 0.31 H B-Natriuretic Peptide 9823.87 H 05/22/17 05/22/17 06:45 06:45 Troponin I 0.31 H Cancelled B-Natriuretic Peptide Troponin, BNP 05/21/17 05/21/17 05/21/17 15:00 15:00 18:18 Troponin I 0.27 H 0.31 H B-Natriuretic Peptide 9823.87 H 05/22/17 05/22/17 06:45 06:45 Troponin I 0.31 H Cancelled B-Natriuretic Peptide Imaging - Results EKG: Report Reviewed (nsr oldawmi) Problem List - Problems (1) Chest pain Assessment/Plan: Not a cardiac cath candidate due to CKD. Renal evaluation appreciated. Echo ordered to assess LV function. continue telemetry. Continue current medications. Elevated troponin may be renal and nonischemic. Stop IV heparin. hold beta kentrell due to bradycardia. continue dual antiplatelet therapy. Any records from prior hospitalization would be helpful. Code(s): R07.9 - CHEST PAIN, UNSPECIFIED Qualifiers: Chest pain type: chest pain due to myocardial ischemia Ischemic chest pain type: unstable angina pectoris Qualified Code(s): I20.0 - Unstable angina
--- NOTE | 2017-05-22 13:18 | EKG ---
Test Reason : Blood Pressure : / mmHG Vent. Rate : 050 BPM Atrial Rate : 050 BPM P-R Int : 164 ms QRS Dur : 090 ms QT Int : 488 ms P-R-T Axes : 038 -54 044 degrees QTc Int : 444 ms SINUS BRADYCARDIA POSSIBLE LEFT ATRIAL ENLARGEMENT LEFT ANTERIOR FASCICULAR BLOCK ANTEROSEPTAL INFARCT (CITED ON OR BEFORE 21-MAY-2017) ABNORMAL ECG WHEN COMPARED WITH ECG OF 21-MAY-2017 14:27, NO SIGNIFICANT CHANGE WAS FOUND NOTE POSSIBLE ERROR IN LEAD V4 POSITIONING Confirmed by JENNIFER GARCIA, TAHIRA ([id number]) on 05/22/2017 1:18:14 PM Referred By: Confirmed By:TAHIRA RODRIGUEZ MD
--- NOTE | 2017-05-22 13:24 | EKG ---
Test Reason : Blood Pressure : / mmHG Vent. Rate : 053 BPM Atrial Rate : 053 BPM P-R Int : 160 ms QRS Dur : 094 ms QT Int : 488 ms P-R-T Axes : 031 -62 062 degrees QTc Int : 457 ms SINUS BRADYCARDIA POSSIBLE LEFT ATRIAL ENLARGEMENT INCOMPLETE RIGHT BUNDLE BRANCH BLOCK LEFT ANTERIOR FASCICULAR BLOCK ANTEROSEPTAL INFARCT , AGE UNDETERMINED ABNORMAL ECG NO PREVIOUS ECGS AVAILABLE CLINICAL CORRELATION IS RECOMMENDED Confirmed by JENNIFER GARCIA, TAHIRA ([id number]) on 05/22/2017 1:24:25 PM Referred By: Confirmed By:TAHIRA RODRIGUEZ MD
[2017-05-22] MEDS: HEPARIN - 25,000 UNIT in SODIUM CHLORIDE 495 ML IV SCH (21:29)
[2017-05-22] MEDS ORDERED: INSULIN (NOVOLOG) ASPART 100 UNITS/ML 10ML VIAL ONE (22:40)
[2017-05-22] MEDS: ROSUVASTATIN CA 10 MG TABLET (FP) PO SCH (22:47)
[2017-05-23] MEDS: INSULIN SLIDING SCALE (NOVOLOG) 1 VIAL SQ SCH ×4 (06:22→22:06)
[2017-05-23 07:53] LABS: BASO % 2.8 % (0-2.0); EOS % 5.9 % (0-4.5); HEMATOCRIT 34.2 % (35.4-49); HEMOGLOBIN 10.8 GM/dL (11.7-16.9); LYMPH % 56.2 % (8-40); MCH 27.7 pg (25.7-33.7); MCHC 31.7 g/dl (32.0-35.9); MEAN CELL VOLUME 87.3 fl (80-96); MEAN PLT VOLUME 10.2 fl (7.5-11.1); NEUT % 23.1 % (42.8-82.8); PLATELET COUNT 80 K/MM3 (134-434); RBC 3.92 M/mm3 (4.00-5.60); RDW 15.2 % (11.9-15.9); WHITE BLOOD COUNT 3.3 K/mm3 (4.0-10.0)
[2017-05-23 08:41] LABS: ALBUMIN 3.4 g/dl (3.4-5.0); ANION GAP 9 (8-16); BLOOD UREA NITROGEN 65 mg/dL (7-18); CALCIUM 7.6 mg/dL (8.5-10.1); CHLORIDE 105 mmol/L (98-107); CO2 25 mmol/L (21-32); CREATININE 3.2 mg/dL (0.7-1.3); GLUCOSE,RANDOM 115 mg/dL (74-106); POTASSIUM 3.7 mmol/L (3.5-5.1); SGOT/AST 42 U/L (15-37); SGPT/ALT 37 U/L (12-78); SODIUM 139 mmol/L (136-145)
[2017-05-23 08:45] LABS: ALK PHOS 83 U/L (45-117); BILIRUBIN,TOTAL 0.6 mg/dL (0.2-1.0); TOT PROT 7.4 g/dl (6.4-8.2)
--- NOTE | 2017-05-23 09:10 | PN ---
Progress Note (short form) - Note Progress Note: Subjective: The patient was seen and examined at the bedside, he has no complaints at this time. He denies any chest pain Current Medications Generic Name Dose Route Start Last Admin Trade Name Dakotah PRN Reason Stop Dose Admin Acetaminophen 650 mg 05/22/17 01:08 05/22/17 01:56 Tylenol - PO 650 mg Q6H PRN Administration PAIN Aspirin 81 mg 05/22/17 10:00 05/22/17 09:51 Ecotrin - PO 81 mg DAILY [facility] Administration Clopidogrel Bisulfate 75 mg 05/22/17 10:00 05/22/17 09:51 Plavix - PO 75 mg DAILY [facility] Administration Heparin Sodium (Porcine) 1,000 unit 05/21/17 17:22 Heparin - IVPUSH PRN PRN Heparin Heparin Sodium (Porcine) 5,000 unit 05/21/17 17:22 Heparin - IVPUSH PRN PRN Heparin Heparin Sodium (Porcine) 5,000 unit 05/23/17 14:00 Heparin - SQ TID [facility] Insulin Aspart 1 vial 05/21/17 22:00 05/23/17 06:22 Novolog Vial Sliding Scale - SQ Not Given ACHS [facility] Protocol Rosuvastatin Calcium 10 mg 05/21/17 22:00 05/22/17 22:47 Crestor - PO 10 mg HS [facility] Administration Objective: Vital Signs Period Temp Pulse Resp BP Sys/Agosto Pulse Ox Last 24 Hr 98.0 F-98.7 F 40-49 16-20 138-166/53-72 96-97 Physical Exam: General: NAD, thin, A&Ox3 Lungs: CTA bilaterally Heart: RRR, S1S2 Abd: Soft, non-tender, non-distended. Normoactive bowel sounds Ext: Warm, well-perfused. 2+ DP/PT bilaterally. No edema CBCD WBC 3.3 K/mm3 (4.0-10.0) L 05/23/17 06:15 RBC 3.92 M/mm3 (4.00-5.60) L 05/23/17 06:15 Hgb 10.8 GM/dL (11.7-16.9) L 05/23/17 06:15 Hct 34.2 % (35.4-49) L 05/23/17 06:15 MCV 87.3 fl (80-96) 05/23/17 06:15 MCHC 31.7 g/dl (32.0-35.9) L 05/23/17 06:15 RDW 15.2 % (11.9-15.9) 05/23/17 06:15 Plt Count 80 K/MM3 (134-434) L 05/23/17 06:15 MPV 10.2 fl (7.5-11.1) 05/23/17 06:15 CMP Sodium 142 mmol/L (136-145) 05/22/17 06:45 Potassium 3.7 mmol/L (3.5-5.1) 05/22/17 06:45 Chloride 108 mmol/L (98-107) H 05/22/17 06:45 Carbon Dioxide 24 mmol/L (21-32) 05/22/17 06:45 Anion Gap 10 (8-16) 05/22/17 06:45 BUN 71 mg/dL (7-18) H 05/22/17 06:45 Creatinine 3.7 mg/dL (0.7-1.3) H 05/22/17 06:45 Creat Clearance w eGFR 16.42 (>60) 05/22/17 06:45 Random Glucose 106 mg/dL (74-106) D 05/22/17 06:45 Calcium 7.8 mg/dL (8.5-10.1) L 05/22/17 06:45 Total Bilirubin 0.6 mg/dL (0.2-1.0) 05/22/17 06:45 AST 47 U/L (15-37) H 05/22/17 06:45 ALT 41 U/L (12-78) 05/22/17 06:45 Alkaline Phosphatase 87 U/L (45-117) 05/22/17 06:45 Total Protein 7.4 g/dl (6.4-8.2) 05/22/17 06:45 Albumin 3.6 g/dl (3.4-5.0) 05/22/17 06:45 CARDIAC ENZYMES Creatine Kinase 458 IU/L (39-308) H 05/22/17 06:45 Troponin I 0.31 ng/ml (0.00-0.05) H 05/22/17 06:45 Assessment: This is a 67 year old male with PMHx of DM, HTN, hyperlipidemia, [place] 12/2016 with cardiac stenting, CKD (baseline Cr ~3), who presented to the ED with chest pain Plan: 1) Chest pain - Elevated trops (baseline unknown), NSTEMI? - Hx of [place] 12/2016 with stenting - Unknown baseline labs - Patient does not have stent cards with him - ASA 81mg daily - Plavix 75mg daily - Heparin gtt discontinued per cardiology - Will hold bblocker give bradycardia - F/u ECHO - Discussed with cardiology 2) KELLI, CKD - Reports baseline Cr ~3 - Cr 3.2 today, restart home Lasix and monitor Cr - Kidney/bladder ultrasound with unremarkable kidneys - Appreciate nephrology consult 3) Elevated BNP - F/u chest x-ray (taken on 05/21) - Patient on Lasix 60mg po daily at home, restart - Lungs CTA bilaterally, no lower extremity edema 4) HTN - Hold bblocker 05/21 bradycardia - No LM/arb as it is unknown if KELLI vs. CKD - F/u cardiology consult for further recommendations 5) DM - BGM ACHS - Modified ISS ACHS given the patient states he does not eat a lot 6) Vomiting - The patient reports vomiting 15-20 minutes after meals since 11/2016 - Abdominal ultrasound with fatty liver vs. hepatocellular disease. Borderline thickening of the gallbladder wall without evidence of acute cholecystitis - May require further imaging 7) F/E/N: - Diabetic diet - Monitor electrolytes 8) Prophylaxis: - Heparin 5,000u sq tid 9) Dispo: - Once condition improves CODE STATUS: FULL CODE Visit type - Emergency Visit Emergency Visit: Yes ED Registration Date: 05/21/17 Care time: The patient presented to the Emergency Department on the above date and was hospitalized for further evaluation of their emergent condition. - New Patient This patient is new to me today: No - Critical Care Critical Care patient: No
--- NOTE | 2017-05-23 09:22 | PN ---
Progress Note (short form) - Note Progress Note: Renal follow up for KELLI on CKD Pt seen and examined at the bedside awake and alert no acute complaints did have cough and mild sob last night when laying down no cp, abd pain, N/V/D Vital Signs Temperature 98.6 F 05/23/17 06:00 Pulse Rate 40 L 05/23/17 06:00 Respiratory Rate 16 05/23/17 06:00 Blood Pressure 166/72 05/23/17 06:00 O2 Sat by Pulse Oximetry (%) 97 05/22/17 22:00 Intake & Output 05/20/17 05/21/17 05/22/17 05/23/17 23:59 23:59 23:59 23:59 Intake Total 1500 155 Output Total 750 Balance 750 155 Weight 66.678 kg 66.224 kg NAD RRR + mild rales at lung bases soft NT/ND No LE edema CBC, BMP 05/23/17 06:15 05/23/17 06:15 Current Medications Acetaminophen (Tylenol -) 650 mg PO Q6H PRN PRN Reason: PAIN Last Admin: 05/22/17 01:56 Dose: 650 mg Aspirin (Ecotrin -) 81 mg PO DAILY [facility] Last Admin: 05/22/17 09:51 Dose: 81 mg Clopidogrel Bisulfate (Plavix -) 75 mg PO DAILY [facility] Last Admin: 05/22/17 09:51 Dose: 75 mg Heparin Sodium (Porcine) (Heparin -) 1,000 unit IVPUSH PRN PRN PRN Reason: Heparin Heparin Sodium (Porcine) (Heparin -) 5,000 unit IVPUSH PRN PRN PRN Reason: Heparin Heparin Sodium (Porcine) (Heparin -) 5,000 unit SQ TID [facility] Insulin Aspart (Novolog Vial Sliding Scale -) 1 vial SQ ACHS [facility] PRN Reason: Protocol Last Admin: 05/23/17 06:22 Dose: Not Given Rosuvastatin Calcium (Crestor -) 10 mg PO HS [facility] Last Admin: 05/22/17 22:47 Dose: 10 mg 67 year old gentleman with PMhx of CKD Stage 4 (baseline Cr ~3), CAD /p TN, Hypertension, DM on insulin who presented with complaints of chest pain and found to have a Cr of 3.8 #KELLI Renal function now improved to near baseline will restart home dose of diuretics and trend renal function #CKD etiology of CKD likely multifactorial from ischemic renal disease +/- diabetic nephropathy would not start LM/ARB given eGFR < 20 despite improvement in renal function #Chest pain r/o ACS cardiology evaluation noted check lipid profile on ASA Isaiah Diaz DO
[2017-05-23] MEDS: CLOPIDOGREL BISULFATE 75 MG TABLET (FP) PO SCH (09:35)
[2017-05-23] MEDS: ASPIRIN COATED 81 MG TABLET.EC PO SCH (09:35)
[2017-05-23] MEDS: FUROSEMIDE 40 MG TABLET (FP) PO SCH (09:53)
--- NOTE | 2017-05-23 12:01 | PN ---
Progress Note, Physician Chief Complaint: no cp or sob tele sinus sam and apcs History of Present Illness: He is a 67 year old male with a history of DM, HTN, hyperlipidemia, [place] 12/2016 with cardiac stents to unknown vessels, CKD (baseline Cr ~3), who presented to the ED with chest pain. The patient reports that he flew form [place] on 05/13 and developed left sided chest pain radiating to his b/l jaw on 05/16. The patient reports the pain is "pinching" associated with SOB. No orthopnea, pnd or edema. No dizziness or syncope. Noted with elevated troponin, bnp and creat 3.8. Tele with episodes of nocturnal severe bradycardia and pauses. BB held. 05/23/17 bradycardia continues no pauses. - Current Medication List Current Medications: Active Medications Acetaminophen (Tylenol -) 650 mg PO Q6H PRN PRN Reason: PAIN Last Admin: 05/22/17 01:56 Dose: 650 mg Aspirin (Ecotrin -) 81 mg PO DAILY [facility] Last Admin: 05/23/17 09:35 Dose: 81 mg Clopidogrel Bisulfate (Plavix -) 75 mg PO DAILY [facility] Last Admin: 05/23/17 09:35 Dose: 75 mg Furosemide (Lasix -) 60 mg PO DAILY [facility] Last Admin: 05/23/17 09:53 Dose: 60 mg Heparin Sodium (Porcine) (Heparin -) 1,000 unit IVPUSH PRN PRN PRN Reason: Heparin Heparin Sodium (Porcine) (Heparin -) 5,000 unit IVPUSH PRN PRN PRN Reason: Heparin Heparin Sodium (Porcine) (Heparin -) 5,000 unit SQ TID [facility] Insulin Aspart (Novolog Vial Sliding Scale -) 1 vial SQ ACHS [facility] PRN Reason: Protocol Last Admin: 05/23/17 11:57 Dose: 2 units Rosuvastatin Calcium (Crestor -) 10 mg PO HS [facility] Last Admin: 05/22/17 22:47 Dose: 10 mg - Objective Vital Signs: Vital Signs Temperature 98 F 05/23/17 09:36 Pulse Rate 47 L 05/23/17 09:36 Respiratory Rate 20 05/23/17 09:56 Blood Pressure 149/53 05/23/17 09:36 O2 Sat by Pulse Oximetry (%) 98 05/23/17 09:56 Constitutional: Yes: No Distress, Calm Eyes: Yes: Conjunctiva Clear, EOM Intact HENT: Yes: Atraumatic, Normocephalic Neck: Yes: Supple, Trachea Midline Cardiovascular: Yes: Regular Rate and Rhythm, Bradycardia Respiratory: Yes: CTA Bilaterally Gastrointestinal: Yes: Normal Bowel Sounds Extremities: Yes: WNL Edema: No Peripheral Pulses WNL: Yes Labs: CBC, BMP 05/23/17 06:15 05/23/17 06:15 INR, PTT INR 1.11 (0.82-1.09) 05/21/17 15:00 Problem List - Problems (1) Chest pain Assessment/Plan: Not a cardiac cath candidate due to CKD. Renal evaluation appreciated. Echo ordered to assess LV function. continue telemetry. Continue current medications. Elevated troponin may be renal and nonischemic. Stop IV heparin. hold beta kentrell due to bradycardia. continue dual antiplatelet therapy. Any records from prior hospitalization would be helpful. Code(s): R07.9 - CHEST PAIN, UNSPECIFIED Qualifiers: Chest pain type: chest pain due to myocardial ischemia Ischemic chest pain type: unstable angina pectoris Qualified Code(s): I20.0 - Unstable angina
[2017-05-23] MEDS: HEPARIN NA (PORCINE) 5,000 UNITS/ML 1ML VIAL SQ SCH ×2 (16:10→22:07)
[2017-05-23] MEDS: ROSUVASTATIN CA 10 MG TABLET (FP) PO SCH (22:07)
[2017-05-24] MEDS: HEPARIN NA (PORCINE) 5,000 UNITS/ML 1ML VIAL SQ SCH ×2 (05:37→13:54)
[2017-05-24] MEDS: INSULIN SLIDING SCALE (NOVOLOG) 1 VIAL SQ SCH ×3 (06:12→16:52)
[2017-05-24 06:37] LABS: BASO % 0.4 % (0-2.0); EOS % 4.9 % (0-4.5); HEMATOCRIT 32.5 % (35.4-49); HEMOGLOBIN 10.6 GM/dL (11.7-16.9); LYMPH % 34.2 % (8-40); MCH 28.5 pg (25.7-33.7); MCHC 32.7 g/dl (32.0-35.9); MEAN CELL VOLUME 87.2 fl (80-96); MEAN PLT VOLUME 10.6 fl (7.5-11.1); MONO % 9.4 % (3.8-10.2); NEUT % 51.1 % (42.8-82.8); PLATELET COUNT 91 K/MM3 (134-434); RBC 3.73 M/mm3 (4.00-5.60); RDW 16.1 % (11.9-15.9); WHITE BLOOD COUNT 3.9 K/mm3 (4.0-10.0)
[2017-05-24 06:56] LABS: ANION GAP 10 (8-16); BLOOD UREA NITROGEN 63 mg/dL (7-18); CALCIUM 7.5 mg/dL (8.5-10.1); CHLORIDE 105 mmol/L (98-107); CO2 26 mmol/L (21-32); CREATININE 2.9 mg/dL (0.7-1.3); GLUCOSE,RANDOM 165 mg/dL (74-106); MAGNESIUM 2.6 mg/dL (1.8-2.4); PHOSPHOROUS 3.1 mg/dL (2.5-4.9); POTASSIUM 4.2 mmol/L (3.5-5.1); SODIUM 141 mmol/L (136-145)
[2017-05-24] MEDS: ACETAMINOPHEN 325 MG TABLET (FP) PO PRN (08:03)
--- NOTE | 2017-05-24 10:31 | PN ---
Progress Note (short form) - Note Progress Note: Subjective: The patient was seen and examined at the bedside, he states he is having chills and weakness Influenza A&B negative Current Medications Generic Name Dose Route Start Last Admin Trade Name Dakotah PRN Reason Stop Dose Admin Acetaminophen 650 mg 05/22/17 01:08 05/24/17 08:03 Tylenol - PO 650 mg Q6H PRN Administration PAIN Aspirin 81 mg 05/22/17 10:00 05/23/17 09:35 Ecotrin - PO 81 mg DAILY [facility] Administration Clopidogrel Bisulfate 75 mg 05/22/17 10:00 05/23/17 09:35 Plavix - PO 75 mg DAILY [facility] Administration Furosemide 60 mg 05/23/17 10:00 05/23/17 09:53 Lasix - PO 60 mg DAILY [facility] Administration Heparin Sodium (Porcine) 1,000 unit 05/21/17 17:22 Heparin - IVPUSH PRN PRN Heparin Heparin Sodium (Porcine) 5,000 unit 05/21/17 17:22 Heparin - IVPUSH PRN PRN Heparin Heparin Sodium (Porcine) 5,000 unit 05/23/17 14:00 05/24/17 05:37 Heparin - SQ 5,000 unit TID [facility] Administration Insulin Aspart 1 vial 05/21/17 22:00 05/24/17 06:12 Novolog Vial Sliding Scale - SQ Not Given ACHS [facility] Protocol Rosuvastatin Calcium 10 mg 05/21/17 22:00 05/23/17 22:07 Crestor - PO 10 mg HS [facility] Administration Objective: Vital Signs Period Temp Pulse Resp BP Sys/Agosto Pulse Ox Last 24 Hr 97.1 F-98.5 F 39-53 18-18 140-188/53-79 98 Physical Exam: General: NAD, thin, A&Ox3 Lungs: CTA bilaterally Heart: RRR, S1S2 Abd: Soft, non-tender, non-distended. Normoactive bowel sounds Ext: Warm, well-perfused. 2+ DP/PT bilaterally. No edema CBCD WBC 3.9 K/mm3 (4.0-10.0) L 05/24/17 05:35 RBC 3.73 M/mm3 (4.00-5.60) L 05/24/17 05:35 Hgb 10.6 GM/dL (11.7-16.9) L 05/24/17 05:35 Hct 32.5 % (35.4-49) L 05/24/17 05:35 MCV 87.2 fl (80-96) 05/24/17 05:35 MCHC 32.7 g/dl (32.0-35.9) 05/24/17 05:35 RDW 16.1 % (11.9-15.9) H 05/24/17 05:35 Plt Count 91 K/MM3 (134-434) L 05/24/17 05:35 MPV 10.6 fl (7.5-11.1) 05/24/17 05:35 CMP Sodium 141 mmol/L (136-145) 05/24/17 05:35 Potassium 4.2 mmol/L (3.5-5.1) 05/24/17 05:35 Chloride 105 mmol/L (98-107) 05/24/17 05:35 Carbon Dioxide 26 mmol/L (21-32) 05/24/17 05:35 Anion Gap 10 (8-16) 05/24/17 05:35 BUN 63 mg/dL (7-18) H 05/24/17 05:35 Creatinine 2.9 mg/dL (0.7-1.3) H 05/24/17 05:35 Creat Clearance w eGFR 19.41 (>60) 05/23/17 06:15 Random Glucose 165 mg/dL (74-106) H D 05/24/17 05:35 Calcium 7.5 mg/dL (8.5-10.1) L 05/24/17 05:35 Total Bilirubin 0.6 mg/dL (0.2-1.0) 05/23/17 06:15 AST 42 U/L (15-37) H 05/23/17 06:15 ALT 37 U/L (12-78) 05/23/17 06:15 Alkaline Phosphatase 83 U/L (45-117) 05/23/17 06:15 Total Protein 7.4 g/dl (6.4-8.2) 05/23/17 06:15 Albumin 3.4 g/dl (3.4-5.0) 05/23/17 06:15 CARDIAC ENZYMES Creatine Kinase 458 IU/L (39-308) H 05/22/17 06:45 Troponin I 0.31 ng/ml (0.00-0.05) H 05/22/17 06:45 Microbiology 05/24/17 07:45 Nasopharyngeal Swab Influenza Types A,B Antigen (ROGERS) - Final 05/24/17 07:45 Nasopharyngeal Swab - Final Assessment: This is a 67 year old male with PMHx of DM, HTN, hyperlipidemia, [place] 12/2016 with cardiac stenting, CKD (baseline Cr ~3), who presented to the ED with chest pain Plan: 1) Chest pain - Elevated trops (baseline unknown), NSTEMI? - Hx of [place] 12/2016 with stenting - Unknown baseline labs - Patient does not have stent cards with him - ASA 81mg daily - Plavix 75mg daily - Heparin gtt discontinued per cardiology - Will hold bblocker give bradycardia - F/u ECHO - Discussed with cardiology 2) KELLI, CKD - Reports baseline Cr ~3 - Cr 2.9 today, continue home Lasix and monitor Cr - Kidney/bladder ultrasound with unremarkable kidneys - Appreciate nephrology consult 3) Elevated BNP - Chest x-ray with no acute pathology - Patient on Lasix 60mg po daily at home, restart - Lungs CTA bilaterally, no lower extremity edema 4) HTN - Hold bblocker 2/2 bradycardia - No LM/arb as it is unknown if KELLI vs. CKD 5) DM - BGM ACHS - Modified ISS ACHS given the patient states he does not eat a lot 6) Vomiting - The patient reports vomiting 15-20 minutes after meals since 11/2016 - Abdominal ultrasound with fatty liver vs. hepatocellular disease. Borderline thickening of the gallbladder wall without evidence of acute cholecystitis - May require further imaging as outpatient, no episodes of N/V while here 7) F/E/N: - Diabetic diet - Monitor electrolytes 8) Prophylaxis: - Heparin 5,000u sq tid 9) Dispo: - Once condition improves CODE STATUS: FULL CODE Visit type - Emergency Visit Emergency Visit: Yes ED Registration Date: 05/21/17 Care time: The patient presented to the Emergency Department on the above date and was hospitalized for further evaluation of their emergent condition. - New Patient This patient is new to me today: No - Critical Care Critical Care patient: No
[2017-05-24] MEDS: ASPIRIN COATED 81 MG TABLET.EC PO SCH (10:37)
[2017-05-24] MEDS: FUROSEMIDE 40 MG TABLET (FP) PO SCH (10:37)
[2017-05-24] MEDS: CLOPIDOGREL BISULFATE 75 MG TABLET (FP) PO SCH (10:37)
[2017-05-24 13:26] VITALS: BP 158/64; PULSE 43; TEMP 98.1
--- NOTE | 2017-05-24 15:45 | PN ---
Progress Note, Physician Chief Complaint: Cardiology Fu no cp or sob tele sinus sam and apcs History of Present Illness: 67 year old male with a history of DM, HTN, hyperlipidemia, TX 12/2016 with cardiac stents to unknown vessels, CKD (baseline Cr ~3), who presented to the ED with chest pain. The patient reports that he flew form [place] on 05/13 and developed left sided chest pain radiating to his b/l jaw on 05/16. The patient reports the pain is "pinching" associated with SOB. No orthopnea, pnd or edema. No dizziness or syncope. Noted with elevated troponin, bnp and creat 3.8. - Current Medication List Current Medications: Active Medications Acetaminophen (Tylenol -) 650 mg PO Q6H PRN PRN Reason: PAIN Last Admin: 05/24/17 08:03 Dose: 650 mg Aspirin (Ecotrin -) 81 mg PO DAILY [facility] Last Admin: 05/24/17 10:37 Dose: 81 mg Clopidogrel Bisulfate (Plavix -) 75 mg PO DAILY [facility] Last Admin: 05/24/17 10:37 Dose: 75 mg Furosemide (Lasix -) 60 mg PO DAILY [facility] Last Admin: 05/24/17 10:37 Dose: 60 mg Heparin Sodium (Porcine) (Heparin -) 1,000 unit IVPUSH PRN PRN PRN Reason: Heparin Heparin Sodium (Porcine) (Heparin -) 5,000 unit IVPUSH PRN PRN PRN Reason: Heparin Heparin Sodium (Porcine) (Heparin -) 5,000 unit SQ TID [facility] Last Admin: 05/24/17 13:54 Dose: 5,000 unit Insulin Aspart (Novolog Vial Sliding Scale -) 1 vial SQ ACHS [facility] PRN Reason: Protocol Last Admin: 05/24/17 11:50 Dose: 4 units Rosuvastatin Calcium (Crestor -) 10 mg PO HS [facility] Last Admin: 05/23/17 22:07 Dose: 10 mg - Objective Vital Signs: Vital Signs Temperature 98.1 F 05/24/17 13:25 Pulse Rate 43 L 05/24/17 13:25 Respiratory Rate 18 05/24/17 13:25 Blood Pressure 158/64 05/24/17 13:25 O2 Sat by Pulse Oximetry (%) 98 05/23/17 22:00 Constitutional: Yes: No Distress, Calm Eyes: Yes: Conjunctiva Clear, EOM Intact HENT: Yes: Atraumatic, Normocephalic Neck: Yes: Supple, Trachea Midline Cardiovascular: Yes: Regular Rate and Rhythm, S1, S2. No: JVD Respiratory: Yes: Regular, CTA Bilaterally Edema: No Labs: CBC, BMP 05/24/17 05:35 05/24/17 05:35 INR, PTT INR 1.11 (0.82-1.09) 05/21/17 15:00 - ....Imaging Other: Report Reviewed (Echocardiogram with preserved LV function) Problem List - Problems (1) Chest pain Code(s): R07.9 - CHEST PAIN, UNSPECIFIED Qualifiers: Chest pain type: chest pain due to myocardial ischemia Ischemic chest pain type: unstable angina pectoris Qualified Code(s): I20.0 - Unstable angina Assessment/Plan Mildly elevated troponin may be renal and nonischemic. LV function preserved. Continue medical therapy for CAD with current meds. DC telemetry Will see as needed.
--- NOTE | 2017-05-24 16:21 | PN ---
Progress Note (short form) - Note Progress Note: Renal follow up for KELLI on CKD Pt seen and examined at the bedside no acute complaints denies any sob, chest pain, abd pain making urine Vital Signs Temperature 98.1 F 05/24/17 13:25 Pulse Rate 43 L 05/24/17 13:25 Respiratory Rate 18 05/24/17 13:25 Blood Pressure 158/64 05/24/17 13:25 O2 Sat by Pulse Oximetry (%) 98 05/23/17 22:00 Intake & Output 05/21/17 05/22/17 05/23/17 05/24/17 23:59 23:59 23:59 23:59 Intake Total 1500 555 Output Total 750 300 Balance 750 255 Weight 66.678 kg 66.224 kg NAD RRR + mild rales at lung bases soft NT/ND No LE edema CBC, BMP 05/24/17 05:35 05/24/17 05:35 Current Medications Acetaminophen (Tylenol -) 650 mg PO Q6H PRN PRN Reason: PAIN Last Admin: 05/24/17 08:03 Dose: 650 mg Aspirin (Ecotrin -) 81 mg PO DAILY [facility] Last Admin: 05/24/17 10:37 Dose: 81 mg Clopidogrel Bisulfate (Plavix -) 75 mg PO DAILY [facility] Last Admin: 05/24/17 10:37 Dose: 75 mg Furosemide (Lasix -) 60 mg PO DAILY [facility] Last Admin: 05/24/17 10:37 Dose: 60 mg Heparin Sodium (Porcine) (Heparin -) 1,000 unit IVPUSH PRN PRN PRN Reason: Heparin Heparin Sodium (Porcine) (Heparin -) 5,000 unit IVPUSH PRN PRN PRN Reason: Heparin Heparin Sodium (Porcine) (Heparin -) 5,000 unit SQ TID [facility] Last Admin: 05/24/17 13:54 Dose: 5,000 unit Insulin Aspart (Novolog Vial Sliding Scale -) 1 vial SQ ACHS [facility] PRN Reason: Protocol Last Admin: 05/24/17 11:50 Dose: 4 units Rosuvastatin Calcium (Crestor -) 10 mg PO HS [facility] Last Admin: 05/23/17 22:07 Dose: 10 mg 67 year old gentleman with PMhx of CKD Stage 4 (baseline Cr ~3), CAD /p TX, Hypertension, DM on insulin who presented with complaints of chest pain and found to have a Cr of 3.8 #KELLI Renal function is stable at baseline continue Lasix 60mg PO dialy no LM/ARB given eGFR < 20 #CKD etiology of CKD likely multifactorial from ischemic renal disease +/- diabetic nephropathy no indication for [employer] at this time outpatient renal follow up #Chest pain r/o ACS cardiology evaluation noted check lipid profile on ASA Isaiah Diaz DO
--- NOTE | 2017-05-24 16:26 | DS ---
Physical Examination Vital Signs: Vital Signs Temperature 98.1 F 05/24/17 13:25 Pulse Rate 43 L 05/24/17 13:25 Respiratory Rate 18 05/24/17 14:00 Blood Pressure 158/64 05/24/17 13:25 O2 Sat by Pulse Oximetry (%) 98 05/24/17 14:00 Labs: CBC, BMP 05/24/17 05:35 05/24/17 05:35 Discharge Summary Reason For Visit: CHEST PAIN Current Active Problems Chest pain (Acute) Hospital Course: Spoke to Dr. Diaz who recommends outpatient follow-up Cleared for discharge from cardiology Condition: Improved - Instructions Diet, Activity, Other Instructions: Please return to the ED with new, persistent, or worsening symptoms. Please follow-up with providers as indicated. Referrals: Tejinder Spencer MD [Staff Physician] - (Please follow-up with Dr. Spencer (primary care provider) within 1 week for further evaluation of your white blood cell count and low platelets.) Bull Farrell MD [Staff Physician] - (Please follow-up with Dr. Farrell ( cardiology) within 1 week for further management. Please attempt to get your records from [facility] prior to your office visit.) Isaiah Diaz MD [Staff Physician] - (Please follow-up with Dr. Diaz ( nephrology) within 1 week for further management of your chronic kidney disease. ) Disposition: HOME - Home Medications Comprehensive Discharge Medication List: Ambulatory Orders Insulin (Novolog 70/30) [Novolog Mix 70/30 Flexpen -] 20 units SQ BID 05/21/17 Rosuvastatin Calcium [Crestor] 10 mg PO HS 05/22/17 Acetaminophen [Tylenol .Regular Strength -] 650 mg PO Q6H PRN tablet 05/24/17 Aspirin Coated [Ecotrin -] 81 mg PO DAILY #30 tablet.ec 05/24/17 Clopidogrel Bisulfate [Plavix -] 75 mg PO DAILY #30 tablet 05/24/17 Furosemide [Lasix] 60 mg PO DAILY #90 tablet 05/24/17 Rosuvastatin [Crestor -] 10 mg PO HS #30 tablet 05/24/17
== END 2017-05-24 16:59 | disposition home or self-care (01) ==
LOC: JER 14:03 → JERBED 17:34 → J4S 18:33
PROVIDERS: ADMIT Internal Medicine; ATTEND Registered Nurse
CPT/HCPCS: 36415; 71045-TC; 76700-TC; 76775-TC; 80048; 80053; 80061; 81003; 81015; 82436; 82550; 82553; 82570; 82962; 83036; 83721; 83735; 83880; 84100; 84133; 84300; 84443; 84484; 84540; 85025; 85027; 85610; 85730; 87804; 93005; 93010; 93306-TC; 99285-25; G0378; J1644